=== PATIENT | male | born 1965 | race Caucasian/White ===

== ENCOUNTER 2022-07-13 08:38 | Outpatient (CLI) | payer OTHER ==
[2022-07-13] MEDS ORDERED: Lidocaine 1% PF 5 ML VIAL ONE (09:03)
[2022-07-13] MEDS ORDERED: Sodium Bicarbonate 2.5 MEQ/5 ML VIAL ONE (09:03)
[2022-07-13] MEDS ORDERED: EPINEPHrine 1 MG/ML AMP ONE (09:03)
[2022-07-13] MEDS ORDERED: Magnevist 469MG/ML 20 ML VIAL ONE (14:53)
[2022-07-13] MEDS ORDERED: Iopamidol 300 61% 50 ML VIAL FS ONE (14:55)
== END 2022-07-13 10:40 | disposition home or self-care (01) ==
LOC: CSHRAD 08:38
PROVIDERS: ATTEND Orthopaedic Surgery
DX: M24.812 Other specific joint derangements of left shoulder, not elsewhere classified (principal); M75.112 Incomplete rotator cuff tear or rupture of left shoulder, not specified as traumatic
CPT/HCPCS: 23350; A9579; J0171; Q9967

== ENCOUNTER 2023-12-13 12:30 | Outpatient (CLI) | payer OTHER | END 2023-12-13 12:31 | disposition home or self-care (01) | LOC: CSHULT 12:30 | PROVIDERS: ATTEND Chiropractor | DX: I51.9 Heart disease, unspecified (principal); I51.7 Cardiomegaly; R93.1 Abnormal findings on diagnostic imaging of heart and coronary circulation | CPT/HCPCS: 93306 ==

== ENCOUNTER 2024-11-09 10:15 | Outpatient (CLI) | payer OTHER ==
[2024-11-09 12:33] LABS: Hematocrit 46.3 % (38.8-50.0); Hemoglobin 15.3 g/dL (13.5-17.5); Mean Corpuscular Hemoglobin 29.1 pg (27.0-33.0); Mean Corpuscular Volume 88.2 fL (81.2-95.1); Platelet Count 235 10x3/uL (150-450); RBC Distribution Width 11.9 % (11.5-14.5); Red Blood Cell (RBC) Count 5.25 10x6/uL (4.32-5.72); White Blood Cell (WBC) Count 7.17 10x3/uL (3.5-10.5)
[2024-11-09 12:57] LABS: Anion Gap 15 mmol/L (10-20); BUN (Urea Nitrogen) 11 mg/dL (8.4-25.7); Calc. Creatinine Clearance 0 mL/min (70-130); Calcium 9.7 mg/dL (7.8-10.44); Carbon Dioxide 26 mmol/L (22-29); Chloride 104 mmol/L (98-107); Estimated GFR 96; Glucose 74 mg/dL (70-105); Potassium 3.9 mmol/L (3.5-5.1); Sodium 141 mmol/L (136-145)
[2024-11-09 13:02] LABS: Prothrombin Time 10.7 sec (9.5-12.1)
== END 2024-11-09 10:16 | disposition home or self-care (01) ==
LOC: CSHLAB 10:15
PROVIDERS: ATTEND Specialist
DX: Z01.818 Encounter for other preprocedural examination (principal); I25.10 Atherosclerotic heart disease of native coronary artery without angina pectoris; R93.1 Abnormal findings on diagnostic imaging of heart and coronary circulation
CPT/HCPCS: 80048; 85027; 85610; 93005; 93010

== ENCOUNTER → 2024-11-10 | Day surgery (SDC) | payer OTHER ==
[~2024-11-10] MED LIST: Adenosine 6 mg (2 mL) VIAL ONE; Ascorbic Acid 500 mg Chewable Tablet ONE; Aspirin 325 MG TAB ONE; Atropine Sulfate 1 mg/1 ml Vial ONE; Heparin 10,000 UNITS/ 10 ML VIAL ONE; Iopamidol 300 61% 100 ML VIAL FS ONE; Lidocaine 1% (PF) 30 ML VIAL ONE; Midazolam HCl 2 mg/2 ml Vial ONE; Nitroglycerin 50 MG/250 ML BOT 0 ML ONE; fentaNYL 50 mcg/mL 1 mL Vial ONE
[2024-11-10 19:30] VITALS: BP 106/73; TEMP 98.3
== END ==
LOC: CSHCCL 11:05
PROVIDERS: ATTEND Specialist
PROC: 4A023N7 Measurement of Cardiac Sampling and Pressure, Left Heart, Percutaneous Approach (ICD-10-PCS; principal; 2024-11-10)
PROC: B201YZZ Plain Radiography of Multiple Coronary Arteries using Other Contrast (ICD-10-PCS; principal; 2024-11-10)
DX: I25.118 Atherosclerotic heart disease of native coronary artery with other forms of angina pectoris (principal); I42.9 Cardiomyopathy, unspecified; I95.1 Orthostatic hypotension; I11.0 Hypertensive heart disease with heart failure; I50.22 Chronic systolic (congestive) heart failure; E11.9 Type 2 diabetes mellitus without complications; E78.5 Hyperlipidemia, unspecified; F32.9 Major depressive disorder, single episode, unspecified; F41.9 Anxiety disorder, unspecified; Z95.1 Presence of aortocoronary bypass graft; Z90.49 Acquired absence of other specified parts of digestive tract; Z98.890 Other specified postprocedural states; Z79.82 Long term (current) use of aspirin; Z79.84 Long term (current) use of oral hypoglycemic drugs; Z79.85 Long-term (current) use of injectable non-insulin antidiabetic drugs; Z79.899 Other long term (current) drug therapy
CPT/HCPCS: 36215; 36225; 93459; 99152; 99153; C1760; C1769; J0153; J0461; J1644; J2250; J3010; Q9967

== ENCOUNTER 2025-05-30 18:05 | Observation (INO) | payer OTHER ==
[2025-05-30] MEDS ORDERED: Ondansetron PF 4 MG/2 ML Vial IVP PRN (21:57)
[2025-05-30] MEDS ORDERED: Dextrose 50% Abboject 50 ML SYRINGE SLOW IVP PRN (21:57)
[2025-05-30] MEDS ORDERED: Glucagon 1 MG/ML KIT IM PRN (21:57)
[2025-05-30] MEDS ORDERED: Guaifenesin DM 100-10/5 ML UDCUP PO PRN (21:57)
[2025-05-30] MEDS ORDERED: Calcium Carbonate 500 MG ChewTAB PO PRN (21:57)
[2025-05-30] MEDS ORDERED: Senokot S 8.6-50 MG TAB PO PRN (21:57)
[2025-05-30] MEDS ORDERED: Acetaminophen 325 MG TAB PO PRN (21:57)
[2025-05-30] MEDS ORDERED: Nitroglycerin 0.4 MG TAB (25 Tab Bottle) SL PRN (22:00)
[2025-05-30 22:32] VITALS: BMI 31.3
[2025-05-30 22:48] LABS: Troponin I 0.094 ng/mL (< 0.028)
[2025-05-30] MEDS: Enoxaparin 100 MG (1 mL) SYRINGE SC SCH (23:12)
[2025-05-30] MEDS: Nitroglycerin 2% Ointment 1 INCH/1 GM Packet TOP SCH (23:13)
[2025-05-31 05:07] LABS: Anion Gap 17 mmol/L (10-20); BUN (Urea Nitrogen) 15 mg/dL (8.4-25.7); Calc. Creatinine Clearance 101 mL/min (70-130); Calcium 8.7 mg/dL (7.8-10.44); Carbon Dioxide 20 mmol/L (22-29); Cardiac Risk 2.7 (Less than 4.5); Chloride 109 mmol/L (98-107); Cholesterol 117 mg/dl (< 200 Desired); Glucose 101 mg/dL (70-105); HDL Cholesterol 44 mg/dL (>60 Neg Risk); LDL Cholesterol, Calculated 45 mg/dL; Potassium 3.8 mmol/L (3.5-5.1); Sodium 142 mmol/L (136-145); Triglycerides 139 mg/dL (Less than 150)
[2025-05-31 05:09] LABS: Troponin I 0.095 ng/mL (< 0.028)
[2025-05-31] MEDS: metFORMIN 500 MG TAB PO SCH (09:42)
[2025-05-31] MEDS: Aspirin 325 MG TAB PO SCH (09:42)
[2025-05-31] MEDS: Furosemide 20 MG TAB PO SCH (09:42)
[2025-05-31] MEDS: Sacubitril 24MG/Valsartan 26 MG TAB PO SCH (09:43)
[2025-05-31] MEDS: Carvedilol 3.125 MG TAB PO SCH (09:43)
[2025-05-31 16:54] VITALS: BP 114/70; TEMP 98.4
[2025-05-31] MEDS ORDERED: Enoxaparin 40 MG (0.4 mL) SYRINGE SC SCH (21:00)
[2025-05-31] MEDS ORDERED: Rosuvastatin 20 MG TAB PO SCH (21:00)
== END 2025-05-31 18:37 | disposition home or self-care (01) ==
LOC: CSHTELE 21:05
PROVIDERS: ADMIT Hospitalist; ATTEND Hospitalist
PROC: B24BZZZ Ultrasonography of Heart with Aorta (ICD-10-PCS; principal; 2025-05-31)
DX: I25.110 Atherosclerotic heart disease of native coronary artery with unstable angina pectoris (principal); I42.9 Cardiomyopathy, unspecified; I11.0 Hypertensive heart disease with heart failure; I50.42 Chronic combined systolic (congestive) and diastolic (congestive) heart failure; E78.5 Hyperlipidemia, unspecified; R73.03 Prediabetes; F41.9 Anxiety disorder, unspecified; F32.A Depression, unspecified; F43.10 Post-traumatic stress disorder, unspecified; Z95.1 Presence of aortocoronary bypass graft; Z90.49 Acquired absence of other specified parts of digestive tract; Z98.890 Other specified postprocedural states; Z79.82 Long term (current) use of aspirin; Z79.899 Other long term (current) drug therapy
CPT/HCPCS: 36415; 71045; 80048; 80053; 80061; 83036; 84484; 85025; 93005; 93010; 93306; J1650